=== PATIENT | female | born 1995 | race Caucasian/White ===

== ENCOUNTER → 2019-11-27 | Outpatient (REF) | payer OTHER ==
[2019-11-27 13:09] LABS: HEMOGLOBIN 13.2 g/dl (12.0-15.5); MEAN CORPUSCULAR HEMOGLOBIN 28.6 pg (27.0-33.0); MEAN CORPUSCULAR VOLUME 86.8 fl (80.0-96.0); PLATELET COUNT, AUTOMATED 335 10^3/uL (150-450); RED BLOOD COUNT 4.61 10^6/uL (4.00-5.40); WHITE BLOOD COUNT 6.3 10^3/uL (4.0-10.0)
[2019-11-27 13:19] LABS: ALBUMIN 3.4 GM/DL (3.2-5.2); ALT/SGPT 21 U/L (12-78); BILIRUBIN,TOTAL 0.6 MG/DL (0.2-1.0); BLOOD UREA NITROGEN 12 MG/DL (7-18); CALCIUM LEVEL 8.9 MG/DL (8.5-10.1); CARBON DIOXIDE LEVEL 30 MEQ/L (21-32); CHLORIDE LEVEL 103 MEQ/L (98-107); CREATININE FOR GFR 0.52 MG/DL (0.55-1.30); GLOMERULAR FILTRATION RATE > 60.0 (>60); GLUCOSE, FASTING 85 MG/DL (70-100); POTASSIUM SERUM 4.2 MEQ/L (3.5-5.1); SODIUM LEVEL 137 MEQ/L (136-145); TOTAL PROTEIN 6.5 GM/DL (6.4-8.2)
[2019-11-28 09:13] LABS: CHOLESTEROL LEVEL 167 MG/DL (<200); CHOLESTEROL RISK RATIO 2.879 (<5); HDL CHOLESTEROL 58 MG/DL (>40); LDL CHOLESTEROL 92 MG/DL (<100); NON-HDL-C 109 MG/DL; TRIGLYCERIDES LEVEL 83 MG/DL (<150)
[2019-11-28 09:17] LABS: TOTAL 25(OH) VITAMIN D 32.2 NG/ML (30.0-100.0)
== END ==
LOC: M SFHCPLAZ 09:19
PROVIDERS: ATTEND Nurse Practitioner Family
DX: J30.89 Other allergic rhinitis (principal); F41.9 Anxiety disorder, unspecified

== ENCOUNTER 2020-02-29 16:48 | Emergency (ER) | payer OTHER ==
[~2020-02-29] VITALS: Ht 160 cm; Wt 74.3 kg
[2020-02-29] MEDS ORDERED: NORE0.353 (16:57)
[2020-02-29] MEDS ORDERED: ALBU8.5H (16:57)
[2020-02-29] MEDS ORDERED: CETI-24 (16:57)
[2020-02-29 17:48] LABS: BASO # 0.1 10^3/uL (0.0-0.2); BASO % 0.8 % (0.0-1.0); EOS # 0.5 10^3/uL (0.0-0.5); EOS % 5.9 % (0.0-3.0); HEMATOCRIT 39.3 % (36.0-47.0); HEMOGLOBIN 13.5 g/dl (12.0-15.5); LYMPH # 2.8 10^3/uL (1.5-5.0); MEAN CORPUSCULAR HEMOGLOBIN 29.2 pg (27.0-33.0); MEAN CORPUSCULAR HGB CONC 34.4 g/dl (32.0-36.5); MEAN CORPUSCULAR VOLUME 84.9 fl (80.0-96.0); MONO # 0.3 10^3/uL (0.0-0.8); MONO % 4.1 % (0.0-5.0); NEUTROPHILS # 4.3 10^3/uL (1.5-8.5); NEUTROPHILS % 53.9 % (36.0-66.0); PLATELET COUNT, AUTOMATED 392 10^3/uL (150-450); RED BLOOD COUNT 4.63 10^6/uL (4.00-5.40)
[2020-02-29 17:56] LABS: HCG, SERUM QUALITATIVE NEGATIVE (NEGATIVE)
[2020-02-29 18:01] LABS: BLOOD UREA NITROGEN 14 MG/DL (7-18); CALCIUM LEVEL 9.2 MG/DL (8.5-10.1); CARBON DIOXIDE LEVEL 29 MEQ/L (21-32); CHLORIDE LEVEL 108 MEQ/L (98-107); CK-MB VALUE MASS < 1.0 NG/ML (<3.6); CPK CREATINE PHOSPHOKINASE 59 U/L (26-192); FREE THYROXINE INDEX 3.1 % (1.3-4.8); GLOMERULAR FILTRATION RATE > 60.0 (>60); GLUCOSE, FASTING 100 MG/DL (70-100); MB/CK RELATIVE INDEX 1.69 (< OR =4); SODIUM LEVEL 142 MEQ/L (136-145); T UPTAKE 36 % (30-39); THYROID STIMULATING HORMONE 0.745 uIU/ML (0.358-3.740); THYROXINE (T4) 8.6 UG/DL (4.5-12.0); TROPONIN I < 0.02 NG/ML (< 0.10)
--- NOTE | 2020-02-29 18:53 | REPVR ---
PROCEDURE INFORMATION: Exam: XR Chest, 2 Views Exam date and time: 02/29/2020 5:31 PM Age: 24 years old Clinical indication: Other: Palpitations TECHNIQUE: Imaging protocol: XR of the chest Views: 2 views. COMPARISON: CR Chest, 1 view 09/04/2014 2:16 PM FINDINGS: Lungs: The lungs appear clear. Pleural space: There is no evidence of pneumothorax or pleural effusion. Heart/Mediastinum: The heart is normal in size. Bones/joints: There is no evidence of bony abnormality. IMPRESSION: Clear appearing lungs. Electronically signed by: Angelo Leung On 02/29/2020 18:53:30 PM
[2020-02-29 19:32] VITALS: BP 118/69
--- NOTE | 2020-03-11 12:23 | ECGEPIP ---
[facility] - ED Test Date: 2020-02-29 Pat Name: HALEY SAVAGE Department: Room: - Gender: Female Networks Computer Consultant: joshua : 1995 Requested By: Bess Donovan Order Number: [id number] Reading MD: Bess Donovan Measurements Intervals Gaines Rate: 84 P: 74 KS: 167 QRS: 56 QRSD: 77 T: 52 QT: 325 QTc: 386 Interpretive Statements SINUS RHYTHM NORMAL ECG SEE SCANNED DOWNTIME REPORT
== END 2020-02-29 19:33 | disposition home or self-care (01) ==
LOC: M ED 16:48
DX: R00.2 Palpitations (principal); J45.909 Unspecified asthma, uncomplicated; Z79.3 Long term (current) use of hormonal contraceptives; Z88.1 Allergy status to other antibiotic agents; Z87.59 Personal history of other complications of pregnancy, childbirth and the puerperium; Z90.721 Acquired absence of ovaries, unilateral; Z98.890 Other specified postprocedural states

== ENCOUNTER → 2020-08-05 | Outpatient (REF) | payer OTHER ==
[~2020-08-05] MED LIST: ALBU8.5H; CETI-24; NORE0.353
[2020-08-05 16:36] LABS: HEMATOCRIT 38.8 % (36.0-47.0); HEMOGLOBIN 12.9 g/dl (12.0-15.5); MEAN CORPUSCULAR HEMOGLOBIN 28.8 pg (27.0-33.0); MEAN CORPUSCULAR HGB CONC 33.2 g/dl (32.0-36.5); MEAN CORPUSCULAR VOLUME 86.6 fl (80.0-96.0); PLATELET COUNT, AUTOMATED 377 10^3/uL (150-450); RED BLOOD COUNT 4.48 10^6/uL (4.00-5.40)
[2020-08-05 17:50] LABS: HEPATITIS C VIRUS ABY INDEX 0.2 INDEX (<0.8); HIV 1&2 SCREEN CENTAUR NEGATIVE (NEGATIVE)
== END ==
LOC: M PLALAB 09:51
PROVIDERS: ATTEND Specialist
DX: Z34.81 Encounter for supervision of other normal pregnancy, first trimester (principal)

== ENCOUNTER → 2020-08-21 | Outpatient (REF) | payer OTHER | LOC: M SFHCWAGY 12:51 | PROVIDERS: ATTEND Advanced Practice Midwife | DX: R30.0 Dysuria (principal) ==

== ENCOUNTER → 2020-09-05 | Outpatient (REF) | payer OTHER | LOC: M SFHCWAGY 10:15 | PROVIDERS: ATTEND Advanced Practice Midwife | DX: O34.211 Maternal care for low transverse scar from previous cesarean delivery (principal) ==

== ENCOUNTER → 2020-10-15 | Outpatient (CLI) | payer OTHER ==
--- NOTE | 2020-10-15 15:38 | REP ---
INDICATION: ANATOMY COMPARISON: None. TECHNIQUE: Transabdominal obstetrical ultrasound with color Doppler evaluation. FINDINGS: Examination demonstrates a single live intrauterine in transverse (head to maternal left) presentation. motion is identified by technologist. Placenta is noted posterior/fundal and grade 1 without evidence for placenta previa or abruption. Amniotic fluid volume is normal. Cervix measures 4.3 cm in length and appears closed.. Gestational age by LMP 19 weeks 4 days with RANJAN 03/07/2021. Gestational age by current measurements 20 weeks 1 day with RANJAN 03/03/2021. FHR equals 150 beats per minute. BPD: 4.7 cm at 20 weeks 1 day HC: 17.2 cm at 19 weeks 5 days AC: 15.2 cm at 20 weeks 3 days FL: 3.2 cm at 19 weeks 6 days HL: 3.2 cm at 20 weeks 5 days HC/AC: 1.13 Estimated weight 333 grams (76thpercentile). Anatomical assessment demonstrates normal structures including cranium, choroid plexus, cavum, cerebellum/posterior fossa, facial features, lungs, four-chamber heart/ventricular outflow tracts, diaphragm, stomach, cord insertion/three-vessel cord, kidneys/bladder, spine, and extremities. IMPRESSION: Single live intrauterine demonstrating appropriate interval growth. Anatomical assessment is complete and normal. <Electronically signed by Arvin Kenney > 10/15/20 [id number]
== END ==
LOC: M WHC 13:07
PROVIDERS: ATTEND Advanced Practice Midwife
DX: O34.211 Maternal care for low transverse scar from previous cesarean delivery (principal); Z3A.20 20 weeks gestation of pregnancy

== ENCOUNTER → 2020-11-29 | Outpatient (REF) | payer OTHER ==
[2020-11-29 17:15] LABS: HEMATOCRIT 35.1 % (36.0-47.0); HEMOGLOBIN 11.4 g/dl (12.0-15.5); MEAN CORPUSCULAR HEMOGLOBIN 28.4 pg (27.0-33.0); MEAN CORPUSCULAR HGB CONC 32.5 g/dl (32.0-36.5); MEAN CORPUSCULAR VOLUME 87.5 fl (80.0-96.0); PLATELET COUNT, AUTOMATED 353 10^3/uL (150-450); RED BLOOD COUNT 4.01 10^6/uL (4.00-5.40); WHITE BLOOD COUNT 8.1 10^3/uL (4.0-10.0)
== END ==
LOC: M PLALAB 14:00
PROVIDERS: ATTEND Advanced Practice Midwife
DX: O34.211 Maternal care for low transverse scar from previous cesarean delivery (principal)

== ENCOUNTER → 2020-12-10 | Outpatient (CLI) | payer OTHER | LOC: M LAB 08:36 | PROVIDERS: ATTEND Advanced Practice Midwife | DX: O99.810 Abnormal glucose complicating pregnancy (principal) ==

== ENCOUNTER → 2021-02-07 | Outpatient (REF) | payer OTHER | LOC: M SFHCWAGY 13:07 | PROVIDERS: ATTEND Advanced Practice Midwife | DX: O34.211 Maternal care for low transverse scar from previous cesarean delivery (principal) ==

== ENCOUNTER → 2021-02-27 | Outpatient (CLI) | payer OTHER ==
--- NOTE | 2021-02-27 10:54 | REP ---
INDICATION: GROWTH COMPARISON: 10/15/2020 TECHNIQUE: Transabdominal obstetrical ultrasound with color Doppler evaluation. FINDINGS: Examination demonstrates a single live intrauterine in cephalic presentation. motion is identified by technologist. Placenta is noted posterior and grade 2 without evidence for placenta previa or abruption. Amniotic fluid volume is normal. Cervix measures 3.7 cm in length and appears closed.. Selected gestational age: Thirty-eight weeks 6 days with RANJAN 03/07/2021. Gestational age by current measurements 39 weeks 0 days with RANJAN 03/06/2021. FHR equals 133 beats per minute. BPD: 9.2 cm at 37 weeks 2 days HC: 33.7 cm at 38 weeks 4 days AC: 36.4 cm at 40 weeks 2 days FL: 7.8 cm at 40 weeks 0 days HC/AC: 0.93 Estimated weight 3382 grams (84thpercentile). KARLIE: 11.5 cm IMPRESSION: Single live advanced gestation in cephalic presentation demonstrating appropriate interval growth. <Electronically signed by Arvin Kenney > 02/27/21 [id number]
== END ==
LOC: M WHC 09:51
PROVIDERS: ATTEND Advanced Practice Midwife
DX: Z36.89 Encounter for other specified antenatal screening (principal); O09.293 Supervision of pregnancy with other poor reproductive or obstetric history, third trimester; Z3A.39 39 weeks gestation of pregnancy

== ENCOUNTER 2021-03-17 07:50 | Inpatient (IN) | payer OTHER ==
[~2021-03-17] VITALS: Ht 160 cm; Wt 92.8 kg
[2021-03-17] VITALS (35 sets, daily range): BP systolic 110–179; BP diastolic 58–115
[2021-03-17] MEDS ORDERED: CARBOPROST TROMETHAMINE 250 MCG/ML AMP IM PRN (09:35)
[2021-03-17] MEDS ORDERED: OXYTOCIN DRIP 30 UNITS in IV 1 EA IV PRN (09:35)
[2021-03-17] MEDS ORDERED: OXYTOCIN DRIP 30 UNITS in IV 1 EA IV SCH (09:35)
[2021-03-17] MEDS ORDERED: METHYLERGONOVINE MALEATE 0.2 MG/ML VIAL (J2210) IM PRN (09:35)
[2021-03-17] MEDS ORDERED: LIDOCAINE 1% MDV 20ML VIAL INFIL PRN (09:35)
[2021-03-17] MEDS ORDERED: TRANEXAMIC ACID INJection 1,000 MG in NS 100 ML IV PRN (09:35)
--- NOTE | 2021-03-17 09:48 | HPEPDOC ---
Obstetrical History & Physical General Date of Admission Mar 17, 2021 at 07:50 Primary Care Physician: SHOBHA BARRAGAN CNM History of Present Illness Doreen is a 26-year-old female who is a who is 41.3 weeks gestation with an RANJAN of 03/07/21 based off of her LMP and consistent with her first trimester ultrasound. She initiated care in her first trimester with [facility]. She has a history of a LTCS, history of GHTN, and a history of migraines. She has been counseled extensively about method of delivery and desires a TOLAC. She presents to L&D for an induction of labor due to post dates. She reports starting contractions this morning. Reports active movement. Denies leaking of fluid or vaginal bleeding. Chief Complaint: Induction of labor Information Provided By: Patient Age: 26 : 2 Term: 1 Pre-term: 0 Abortions: 0 Livin Care Care: Good Care Dating Final EDC: Mar 07, 2021 Final EDC by: LMP EGA at Admission: 41.3 Antepartum Course Diagnos(e)s History of LTCS Height (inches): 63 Pre- weight (lbs.): 169 Admission Weight (lbs.): 202 Change in Weight (lbs.): 33 Past Medical History Past Obstetrical History : Past Obstetrical History: Primgravida Date of Delivery: Aug 21, 2018 Gestation: 40.4 Type of Delivery: Ceserean section Sex of Infant: Male (9 lbs 2 oz) Complications: Yes (GHTN and chorioamnionitis) Past Medical History Medical History exercise induced asthma migraine with aura history of dermoid cyst Surgical History: section, [place] teeth, Other (left oophorectomy due to dermoid cyst) Family History Significant Family History: Heart disease, Hypertension, Other (MS, anxiety, depression, MT, CVA, liver disease) Social History Marital Status: Family situation: Spouse/partner home Psychosocial History: No pertinent psych hx * Smoker: non-smoker Alcohol: Denies Drugs: denies Abuse Violence Screening Have you been hit/kicked/slapp: No Have you been sexually assault: No Allergies Coded Allergies: [place] Nut (Verified Allergy, Severe, anaphylaxis, 03/17/21) cefprozil (Verified Allergy, Mild, rash, 02/29/20) Medications Scheduled Aspirin (Aspirin) 81 Mg Tab.chew, 1 TAB PO DAILY for pain No.137/Iron/Folic Acd ( Vitamin Tablet) 1 Each Tablet, 1 TAB PO DAILY Miscellaneous Medications Albuterol Sulfate (Albuterol Sulfate Hfa) 8.5 Gm Hfa.aer.ad Cetirizine HCl (Cetirizine HCl) 10 Mg Tablet Vitamin D (Vitamin D3) 10 Mcg Tablet, 2,000 MCG PO Physical Examination Physical Examination GENERAL: Alert and oriented times three. ABDOMEN: Gravid and non-tender to touch. FETUS: Is vertex (VTX) by sterile vaginal examination (SVE), fetus is vertex (VTX) by Arnoldo. EFW 9 lbs. LUNGS: regular rate and rhythm. No use of accessory muscles. EXTREMITIES: Generalized edema. No clonus. Deep tendon reflexes (DTRs) + 2. Vital Signs/I&O Vital Signs Date Time Temp Pulse Resp B/P (MAP) Pulse Ox O2 Delivery O2 Flow Rate FiO2 03/17/21 08:14 97.7 105 19 139/75 (96) Laboratory Data 24H LABS Laboratory Tests 2 03/17/21 08:09: Serology Scanned Report Hepatitis B Testing Urine Culture: No Growth Pertinent Laboratoy Data Blood Type: O+ RBC Antibody Screen: Negative HIV: Negative Hepatitis B: Negative Hepatitis C: Negative Rapid Plasma Reagin: Nonreactive Rubella: Immune Chlamydia/Gonorrhea: Negative Group B Streptococcus: Negative Glucose Tolerance Test: 146 Anatomy Ultrasound Ultrasound Date: Feb 27, 2021 Placenta Location: Posterior Normal Anatomy: Yes Placenta Previa: No Estimated Weight (grams): 3382 Vaginal Examination Dilation: 2cm Effacement: 50% Station: -2 Cervical Consistency: Soft Cervical Position: Middle Presentation: Cephalic presentation Assessment Heart Rate (FHR): 135 Variability: Moderate Accelerations: Positive Decelerations: None Tocometer Contractions: Yes Frequency: irregular Multi-drug resistant Organism: No history of MDRO Assessment/Plan Assessment IUP at 41.3 weeks Prior LTCS desires TOLAC GBS negative Category I FHR tracing Plan Admit to L&D. Dr. Deras collaborated for plan of care. Risks, benefits, and alternatives have been discussed with patient and she desires to proceed with induction of labor. OOB ad vannesa. Diet: clears. Group B Streptococcus (GBS) negative. Labs and intravenous (IV) per unit protocol. Counseled on stern bulb and IV Pitocin for induction of labor. Anesthesia consult per patients request. Lactated Ringers (LR): Bolus 800 mL prior to epidural, then at 125 mL/hr. Stern bulb placed with 80/40 cc of LR. Patient tolerated well. Anticipate cervical ripening. C-S as appropriate. SHOBHA BARRAGAN CNM Mar 17, 2021 09:48
[2021-03-17] MEDS ORDERED: ASPI81CH33 PO (09:58)
[2021-03-17] MEDS ORDERED: VITAD400CA PO (09:58)
[2021-03-17] MEDS ORDERED: PRENTAB9 PO (09:58)
[2021-03-17 10:12] LABS: HEMATOCRIT 39.8 % (36.0-47.0); HEMOGLOBIN 13.2 g/dl (12.0-15.5); MEAN CORPUSCULAR HEMOGLOBIN 28.1 pg (27.0-33.0); MEAN CORPUSCULAR HGB CONC 33.2 g/dl (32.0-36.5); MEAN CORPUSCULAR VOLUME 84.7 fl (80.0-96.0); PLATELET COUNT, AUTOMATED 357 10^3/uL (150-450); WHITE BLOOD COUNT 10.2 10^3/uL (4.0-10.0)
[2021-03-17] MEDS: LR 1,000 ML IV SCH ×2 (10:26→17:33)
--- NOTE | 2021-03-17 12:16 | IPNPDOC ---
Obstetrical Progress Note Date of Service Mar 17, 2021 Subjective Patient reports her contractions are closer together. Reports she has to urinate but can't urinate. Objective Vital Signs Date Time Temp Pulse Resp B/P (MAP) Pulse Ox O2 Delivery O2 Flow Rate FiO2 03/17/21 11:36 111 145/80 (101) 03/17/21 08:14 97.7 19 Assessment Heart Rate (FHR): 140 Variability: Moderate Accelerations: Positive Decelerations: None Heart Rate Tracing: Category I Tocometer Contractions: Yes Frequency: regular Sterile Vaginal Examination Dilation: 6 cm Effacement (%): other (75%) Station: -2 Cervical Consistency: Soft Cervical Position: Posterior Postion/Presentation: Cephalic presentation Assessment and Plan Age: 26 : 2 Term: 1 Pre-term: 0 Abortions: 0 Livin EGA at Admission: 41.3 Status: Reassuring Group B Streptococcus: Negative Anticipate: Vaginal Delivery Additional Comments Shields bulb out of cervix and IV Pitocin is at 4 mu/min. SHOBHA BARRAGAN CNM Mar 17, 2021 12:16
--- NOTE | 2021-03-17 16:48 | IPNPDOC ---
Obstetrical Progress Note Date of Service Mar 17, 2021 Subjective Patient reports her contractions are stronger. Desires a cervical exam. Objective Vital Signs Date Time Temp Pulse Resp B/P (MAP) Pulse Ox O2 Delivery O2 Flow Rate FiO2 03/17/21 14:06 98.1 88 18 132/77 (95) Assessment Heart Rate (FHR): 130 Variability: Moderate Accelerations: Positive Decelerations: None Heart Rate Tracing: Category I Tocometer Contractions: Yes Frequency: regular Sterile Vaginal Examination Dilation: 7 cm (7-8 cm) Effacement (%): other (75%) Station: -2 Cervical Consistency: Soft Cervical Position: Posterior Postion/Presentation: Cephalic presentation Assessment and Plan Age: 26 : 2 Term: 1 Pre-term: 0 Abortions: 0 Livin Weeks & Days 41.3 weeks Status: Reassuring Group B Streptococcus: Negative Anticipate: Vaginal Delivery Additional Comments IV Pitocin at 8 mu/min. Dr. Deras to be notified of patient being in active labor. SHOBHA BARRAGAN CNM Mar 17, 2021 16:47
[2021-03-17 16:49] LABS: ALT/SGPT 16 U/L (12-78); BILIRUBIN,TOTAL 0.2 MG/DL (0.2-1.0); CREATININE FOR GFR 0.58 MG/DL (0.55-1.30); GLOMERULAR FILTRATION RATE > 60.0 (>60); LDH LACTATE DEHYDROGENASE 171 U/L (84-246); URIC ACID 5.4 MG/DL (2.6-6.0)
[2021-03-17] MEDS ORDERED: REFRIGERATOR IV KEYS XX PRN (20:20)
[2021-03-17] MEDS ORDERED: ePHEDrine SULFATE 25 MG/5 ML(5MG/ML) SYRINGE IV PRN (20:20)
[2021-03-17] MEDS ORDERED: EPIDURAL/PCA KEYS XX PRN (20:20)
[2021-03-17] MEDS ORDERED: FENTANYL/ROPIVACAINE/NACL BAG 100 ML EPIDURAL SCH (20:20)
[2021-03-17] MEDS ORDERED: NALOXONE INJ 0.4MG/1ML VIAL (J2310 PER 1MG) IV PRN (20:20)
[2021-03-17] MEDS ORDERED: diphenhydrAMINE 50MG/ML VIAL (J1200) IV PRN (20:20)
[2021-03-17] MEDS ORDERED: EPIDURAL COMMENT XX SCH (20:20)
[2021-03-17] MEDS ORDERED: ONDANSETRON 4MG/2ML VIAL IV PRN (20:20)
[2021-03-17] MEDS ORDERED: LACTATED RINGER'S 1000 ML IV PRN (20:20)
[2021-03-18] VITALS (20 sets, daily range): BP systolic 101–180; BP diastolic 57–80
[2021-03-18] MEDS ORDERED: CALCIUM CARBONATE 500 MG CHEW U/D PO PRN (01:10)
--- NOTE | 2021-03-18 01:15 | IPNPDOC ---
Obstetrical Progress Note Date of Service Mar 18, 2021 Subjective Patient still comfortable with epidural. Does report some pressure with peak of contraction. Objective Vital Signs Date Time Temp Pulse Resp B/P (MAP) Pulse Ox O2 Delivery O2 Flow Rate FiO2 03/17/21 22:18 104 136/63 (87) 03/17/21 19:44 97.3 03/17/21 18:14 20 Assessment Heart Rate (FHR): 140 Variability: Moderate Decelerations: Late Heart Rate Tracing: Category II Tocometer Contractions: Yes Frequency: regular Sterile Vaginal Examination Dilation: 9 cm (anterior lip) Effacement (%): 100% Station: 0 (O to +1 station) Postion/Presentation: Cephalic presentation Assessment and Plan Age: 26 : 2 Term: 1 Pre-term: 0 Abortions: 0 Livin EGA at Admission: 41.3 Weeks & Days 41.4 weeks Group B Streptococcus: Negative Anticipate: Vaginal Delivery Additional Comments Lates resolved with position change. Dr. Deras aware that patient will be pushing soon and he is available in the hospital. SHOBHA BARRAGAN CNM Mar 18, 2021 01:15
[2021-03-18] MEDS ORDERED: LACTATED RINGER'S 1000 ML IV STA (03:09)
[2021-03-18] MEDS ORDERED: ceFAZolin SOD 2 GM in IV 1 EA IV ONE (03:10)
[2021-03-18] MEDS ORDERED: AZITHROMYCIN INJ 500 MG, VIAL MATE ADAPTER 1 EACH in NS 250 ML IV ONE (03:10)
[2021-03-18] MEDS ORDERED: BICITRA 30ML SOLN UDC PO ONE (03:10)
--- NOTE | 2021-03-18 03:21 | IPNPDOC ---
Obstetrical Progress Note Date of Service Mar 18, 2021 Subjective Patient does report pressure with contractions. She states she is getting tired and if there is no change she is requesting an repeat section. Objective Vital Signs Date Time Temp Pulse Resp B/P (MAP) Pulse Ox O2 Delivery O2 Flow Rate FiO2 03/17/21 22:18 104 136/63 (87) 03/17/21 19:44 97.3 03/17/21 18:14 20 Assessment Heart Rate (FHR): 165 Variability: Moderate Decelerations: Early Heart Patterns: Tachycardia Heart Rate Tracing: Category II Tocometer Contractions: Yes Frequency: regular Sterile Vaginal Examination Dilation: complete Effacement (%): 100% Station: 0 (0 to +1) Postion/Presentation: Cephalic presentation Assessment and Plan Status: Reassuring Anticipate: Section Additional Comments Anesthesia notified. Dr. Deras notified. Neonatology notified. Utilization Supervisor notified. Will proceed with section as patient has not made any change in over an hour of pushing. Arrest of descent. SHOBHA BARRAGAN CNM Mar 18, 2021 03:21
[2021-03-18] MEDS ORDERED: MORPHINE PRES-FREE INJ 10 MG/10 ML VIAL (J2274) ONE (03:49)
[2021-03-18] MEDS ORDERED: LIDOCAINE 2% W/EPINEPHRINE 20ML VIAL **PRES FREE ONE (03:49)
[2021-03-18] MEDS ORDERED: OXYTOCIN INJ 10 UNITS/ML VIAL (J2590) ONE ×3 (03:49→04:37)
[2021-03-18] MEDS ORDERED: ONDANSETRON 4MG/2ML VIAL IV PRN ×3 (04:10→05:40)
[2021-03-18] MEDS ORDERED: NALBUPHINE HCL 10 MG/ML AMP (J2300) IV PRN (04:10)
[2021-03-18] MEDS ORDERED: NALOXONE INJ 0.4MG/1ML VIAL (J2310 PER 1MG) IV PRN ×2 (04:10)
[2021-03-18] MEDS ORDERED: diphenhydrAMINE 50MG/ML VIAL (J1200) IV PRN (04:10)
[2021-03-18] MEDS ORDERED: METOCLOPRAMIDE INJ 10MG/2ML VIAL (J2765 PER 1) IV PRN ×2 (04:10→05:40)
[2021-03-18] MEDS ORDERED: MEPERIDINE 50 MG/ML 1ML VIAL (J2175) ONE (04:28)
[2021-03-18] MEDS ORDERED: PERCOCET 5MG/325MG TAB PO PRN ×2 (04:55→05:40)
[2021-03-18] MEDS ORDERED: MEASLES,MUMPS,RUBELLA VACCINE INJ (MMR-II) (90707) SC SCH (04:55)
[2021-03-18] MEDS ORDERED: ACETAMINOPHEN 500 MG TAB PO PRN (04:55)
[2021-03-18] MEDS ORDERED: OXYTOCIN DRIP 30 UNITS in IV 1 EA IV SCH (04:55)
[2021-03-18] MEDS ORDERED: SIMETHICONE 80MG CHEW TAB PO PRN (04:55)
[2021-03-18] MEDS ORDERED: RHOGAM 300 MCG (1500 IU) INJ (J2790) IM SCH (04:55)
--- NOTE | 2021-03-18 05:02 | ROOPDOC ---
[facility] Report Of Operation Report of Operation DATE OF PROCEDURE: 03/18/2021 PREPROCEDURE DIAGNOSES: 41+4 weeks gestation, arrest of descent/unsuccessful trial of labor after POSTPROCEDURE DIAGNOSES: Same PROCEDURE: Repeat low transverse section SURGEON: Long Deras DO FACOG LASTING MACHINE OPERATOR BED: Noris Solis CNM (Essential role in retraction, extraction, and closure of all tissue layers), Mindi Carvalho (student CNM) ANESTHESIA: Epidural ESTIMATED BLOOD LOSS: 700 mL. IV FLUIDS: 1600 mL LR URINE OUTPUT: 100 mL COMPLICATIONS: None. PREOPERATIVE ANTIBIOTICS: Ancef 2g IV x 1, Azithromycin 500mg IV. COMPLICATIONS: none DATA: Apgars 9 and 9. Birthweight 4240 g, 9 lbs 6 oz. SPECIMENS: none PRIMARY INDICATION FOR : Arrest of descent/unsuccessful trial of labor after DESCRIPTION OF PROCEDURE: The patient was counseled on the risks, benefits, indications and alternatives of the procedure. Informed consent was obtained. She was taken to the operating room with IV running and placed on the operating table in the dorsal supine position with a leftward tilt. Regional anesthesia was found to be adequate. Sequential compression devices were placed on the lower extremities. A Shields catheter was placed under sterile conditions. She was prepared and draped in normal sterile fashion. A time out was performed per protocol. Regional anesthesia was again found to be adequate. A Pfannenstiel skin incision was made with the 10 blade. The 10 blade was used to dissect down to the level of the rectus sheath fascia. The rectus sheath pressure was incised midline and this was extended bilaterally with Mcdonough scissors , and manual stretch. The rectus muscle bellies were dissected off the rectus sheath fascia superiorly and inferiorly using both sharp and blunt dissection. The midline was identified. The peritoneum was identified and ent ered digitally. The peritoneal opening was extended with manual stretch. The Mobius retractor was placed. The vesicouterine peritoneum was dissected with Metzenbaum scissors to create the bladder flap. A low transverse uterine incision was made with the 10 blade. This was extended with manual stretch. The amniotic sac was punctured, and clear fluid was noted. The baby delivered through the hysterotomy without difficulty. The cord was doubly clamped and cut, and the baby was handed off to awaiting care. data shown above. The placenta was removed manually. The intrauterine cavity was cleared of all clot and debris. The hysterotomy was closed with 0 Vicryl in running locked fashion. This was reinforced with a second imbricating layer usi ng 0 Monocryl in running fashion. Small bleeding areas along the hysterotomy were sutured over with 3-0 Vicryl by performing [id number] stitches. Excellent hemostasis of the hysterotomy was noted. The pelvis was irrigated and the fluid suctioned. The Mobius retractor was removed. The peritoneum was closed with 3-0 Vicryl running fashion. The rectus muscle bellies were reapproximated with interrupted stitches using 3-0 Vicryl. The rectus muscles bellies were hemostatic. The rectus sheath fascia was closed with 0 Vicryl running fashion. The subcutaneous layer was irrigated and the fluid suctioned. Small bleeding vessels were cauterized with Bovie. Excellent hemostasis was noted. The subcutaneous layer was reapproximated with 3-0 Vicryl running fashion. Skin was closed with 3-0 Monocryl in subcuticular fashion. An Optifoam bandage was placed over the closed incision. Sponge, needle and instrument counts were correct per protocol throughout the procedure. The patient tolerated the entire procedure very well. She was transferred to the PACU in stable condition. DO CEASAR Colmenares JONATHAN R. DO Mar 18, 2021 05:02
[2021-03-18] MEDS ORDERED: PERCOCET PO (05:04)
[2021-03-18] MEDS ORDERED: IBUP80TA PO (05:04)
[2021-03-18] MEDS ORDERED: DOCU100C16 PO (05:04)
[2021-03-18] MEDS ORDERED: fentaNYL 100 MCG/2 ML INJECTION (J3010) IV PRN (05:40)
[2021-03-18] MEDS ORDERED: LR 1,000 ML IV SCH (05:40)
[2021-03-18] MEDS ORDERED: MEPERIDINE INJ 25 MG/ML VIAL (J2175) IV PRN (05:40)
[2021-03-18] MEDS ORDERED: KETOROLAC 30 MG/ML 1ML VIAL IV PRN (05:40)
[2021-03-18] MEDS: KETOROLAC 30 MG/ML 1ML VIAL IV SCH ×3 (06:42→18:30)
[2021-03-18] MEDS: DOCUSATE SODIUM 100MG CAPSULE PO SCH ×2 (07:52→20:08)
[2021-03-18] MEDS: PRENATAL VITAMINS CHEWABLE TABLET PO SCH (07:52)
[2021-03-18] MEDS ORDERED: diphenhydrAMINE 25MG CAP PO PRN (21:00)
[2021-03-19 02:00] VITALS: BP_SYST 118; BP_SYST 143; BP_DIAS 58; BP_DIAS 91
[2021-03-19] MEDS ORDERED: IBUPROFEN 800 MG TAB As Ordered ONE (02:07)
[2021-03-19] MEDS: IBUPROFEN 800 MG TAB PO SCH ×3 (02:30→18:29)
[2021-03-19 06:00] VITALS: BP 108/59
[2021-03-19 07:24] LABS: HEMATOCRIT 29.4 % (36.0-47.0); MEAN CORPUSCULAR HEMOGLOBIN 28.7 pg (27.0-33.0); MEAN CORPUSCULAR HGB CONC 33.3 g/dl (32.0-36.5); PLATELET COUNT, AUTOMATED 247 10^3/uL (150-450); RED BLOOD COUNT 3.42 10^6/uL (4.00-5.40); WHITE BLOOD COUNT 11.6 10^3/uL (4.0-10.0)
[2021-03-19 07:35] LABS: HEMOGLOBIN 9.8 g/dl (12.0-15.5)
[2021-03-19] MEDS: PRENATAL VITAMINS CHEWABLE TABLET PO SCH (08:02)
[2021-03-19] MEDS: DOCUSATE SODIUM 100MG CAPSULE PO SCH ×2 (08:03→20:14)
[2021-03-19] MEDS: PERCOCET 5MG/325MG TAB PO PRN ×3 (08:08→21:06)
[2021-03-19 10:00] VITALS: BP 121/58
[2021-03-19 14:00] VITALS: BP 116/63
[2021-03-19 17:51] VITALS: BP 113/66
[2021-03-19 22:01] VITALS: BP 116/54
[2021-03-20] MEDS: IBUPROFEN 800 MG TAB PO SCH ×2 (01:32→10:25)
[2021-03-20 02:14] VITALS: BP 126/58
[2021-03-20 06:14] VITALS: BP 119/72
[2021-03-20] MEDS: PERCOCET 5MG/325MG TAB PO PRN (06:39)
[2021-03-20] MEDS: DOCUSATE SODIUM 100MG CAPSULE PO SCH (09:09)
[2021-03-20] MEDS: PRENATAL VITAMINS CHEWABLE TABLET PO SCH (09:09)
--- NOTE | 2021-03-20 12:14 | DS.PDOC ---
Discharge Summary General Date of Admission Mar 17, 2021 at 07:50 Date of Discharge 03/20/21 Attending Physician: ANITA SIMPSON DO Discharge Summary PROCEDURES PERFORMED DURING STAY: 1. Repeat lower transverse section 2. Epidural. ADMITTING DIAGNOSES: 1. Induction of labor. DISCHARGE DIAGNOSES: 1. arrest of descent/unsuccessful trial of labor after . COMPLICATIONS/CHIEF COMPLAINT: Induction.. HISTORY OF PRESENT ILLNESS: Mrs. De La Cruz presented induction of labor. Patient pushed and had arrest of descent/unsuccessful trial labor after section. She underwent a repeat section, productive of live born a Apgars were 9 and 9 weight was 4240 g or 9 lbs. 6 oz. Estimated blood loss 700ml. Patient did well postoperatively by postoperative day #2 had met all discharge criteria is as discharged home in stable condition DISCHARGE MEDICATIONS: Please see below. ALLERGIES: Please see below. PHYSICAL EXAMINATION ON DISCHARGE: VITAL SIGNS: Please see below. GENERAL: No distress HEENT: WNL ABDOMINAL EXAMINATION: Fundus firm. Dressing intact EXTREMITIES: Equal strength and motion SKIN: Intact NEUROLOGICAL EXAMINATION: Grossly intact PSYCHIATRIC EXAMINATION: Appropriate LABORATORY DATA: Please see below. PROGNOSIS: Good ACTIVITY: As tolerated. Pelvic rest. DIET: As tolerated DISCHARGE PLAN: Discharge today. Remove dressing day 5 DISPOSITION: Home DISCHARGE INSTRUCTIONS: 1. Pelvic rest. Continue vitamins. Medications as ordered. Call with fever, nausea, vomiting, chills, foul lochia, wound exudate or evidence infection. DISCHARGE CONDITION: Stable Vital Signs/I&Os Vital Signs Date Time Temp Pulse Resp B/P (MAP) Pulse Ox O2 Delivery O2 Flow Rate FiO2 03/20/21 08:37 18 03/20/21 06:39 Room Air 03/20/21 06:14 97.5 94 119/72 (88) 98 Discharge Medications Scheduled Aspirin (Aspirin) 81 Mg Tab.chew, 1 TAB PO DAILY for pain, (Reported) Docusate Sodium (Docusate Sodium) 100 Mg Capsule, 100 MG PO BID Ibuprofen (Ibuprofen) 800 Mg Tablet, 800 MG PO Q8H No.137/Iron/Folic Acd ( Vitamin Tablet) 1 Each Tablet, 1 TAB PO DAILY, (Reported) Scheduled PRN Oxycodone/Acetaminophen (Oxycodone-Acetaminophen 5-325) 1 Each Tablet, 1 TAB PO Q4H PRN for MODERATE PAIN (PS 5-7) Miscellaneous Medications Albuterol Sulfate (Albuterol Sulfate Hfa) 8.5 Gm Hfa.aer.ad, (Reported) Cetirizine HCl (Cetirizine HCl) 10 Mg Tablet, (Reported) Vitamin D (Vitamin D3) 10 Mcg Tablet, 2,000 MCG PO, (Reported) Allergies Coded Allergies: [place] Nut (Verified Allergy, Severe, anaphylaxis, 03/17/21) cefprozil (Verified Allergy, Mild, rash, 02/29/20) MARTHA COOPER MD. Mar 20, 2021 12:14
== END 2021-03-20 12:45 | disposition home or self-care (01) | DRG 540 ==
LOC: M LDI 07:50 → M OBS 03-18 06:27
PROVIDERS: ADMIT Advanced Practice Midwife; ATTEND Obstetrics & Gynecology
PROC: 3E0P7GC Introduction of Other Therapeutic Substance into Female Reproductive, Via Natural or Artificial Opening (ICD-10-PCS; 2021-03-17)
PROC: 10D00Z1 Extraction of Products of Conception, Low, Open Approach (ICD-10-PCS; principal; 2021-03-18 03:45)
DX: O48.0 Post-term pregnancy (principal); Z3A.41 41 weeks gestation of pregnancy; O34.211 Maternal care for low transverse scar from previous cesarean delivery; O66.41 Failed attempted vaginal birth after previous cesarean delivery; O64.0XX0 Obstructed labor due to incomplete rotation of fetal head, not applicable or unspecified; Z37.0 Single live birth

== ENCOUNTER → 2021-09-04 | Outpatient (REF) | payer OTHER ==
[~2021-09-04] MED LIST changes: +ASPI81CH33 PO; +DOCU100C16 PO; +IBUP80TA PO; +PERCOCET PO; +PRENTAB9 PO; +VITAD400CA PO
== END ==
LOC: M SFHCWAGY 13:12
PROVIDERS: ATTEND Obstetrics & Gynecology
DX: Z12.4 Encounter for screening for malignant neoplasm of cervix (principal); R87.610 Atypical squamous cells of undetermined significance on cytologic smear of cervix (ASC-US)

== ENCOUNTER → 2021-10-16 | Outpatient (CLI) | payer OTHER | LOC: M WHC 11:37 | PROVIDERS: ATTEND Surgery | DX: D23.62 Other benign neoplasm of skin of left upper limb, including shoulder (principal) ==

== ENCOUNTER → 2021-12-11 | Outpatient (CLI) | payer OTHER ==
[2021-12-11 17:06] LABS: BASO # 0.1 10^3/uL (0.0-0.2); BASO % 0.7 % (0.0-1.0); EOS # 0.2 10^3/uL (0.0-0.5); EOS % 3.1 % (0.0-3.0); HEMATOCRIT 41.9 % (36.0-47.0); HEMOGLOBIN 13.8 g/dl (12.0-15.5); LYMPH # 2.5 10^3/uL (1.5-5.0); LYMPH % 33.3 % (24.0-44.0); MEAN CORPUSCULAR HEMOGLOBIN 28.9 pg (27.0-33.0); MEAN CORPUSCULAR HGB CONC 32.9 g/dl (32.0-36.5); MEAN CORPUSCULAR VOLUME 87.7 fl (80.0-96.0); MONO # 0.4 10^3/uL (0.0-0.8); MONO % 5.9 % (2.0-8.0); NEUTROPHILS # 4.2 10^3/uL (1.5-8.5); NEUTROPHILS % 56.7 % (36.0-66.0); PLATELET COUNT, AUTOMATED 366 10^3/uL (150-450); RED BLOOD COUNT 4.78 10^6/uL (4.00-5.40); WHITE BLOOD COUNT 7.4 10^3/uL (4.0-10.0)
[2021-12-11 17:40] LABS: ALBUMIN 3.5 GM/DL (3.2-5.2); ALT/SGPT 18 U/L (12-78); BILIRUBIN,TOTAL 0.2 MG/DL (0.2-1.0); BLOOD UREA NITROGEN 14 MG/DL (7-18); CARBON DIOXIDE LEVEL 30 MEQ/L (21-32); CHLORIDE LEVEL 105 MEQ/L (98-107); GLOMERULAR FILTRATION RATE > 60.0 (>60); GLUCOSE, FASTING 74 MG/DL (70-100); POTASSIUM SERUM 4.4 MEQ/L (3.5-5.1); SODIUM LEVEL 141 MEQ/L (136-145); THYROID STIMULATING HORMONE 0.537 uIU/ML (0.358-3.740); TOTAL PROTEIN 6.9 GM/DL (6.4-8.2)
== END ==
LOC: M PLALAB 15:34
PROVIDERS: ATTEND Physician Assistant
DX: R06.02 Shortness of breath (principal)

== ENCOUNTER → 2022-01-01 | Outpatient (CLI) | payer OTHER ==
[~2022-01-01] MED LIST changes: +ISOVUE-370 76% 100ML VIAL As Ordered ONE
== END ==
LOC: M RAD 09:25
PROVIDERS: ATTEND Physician Assistant
DX: R06.02 Shortness of breath (principal)
CPT/HCPCS: 71275; Q9967

== ENCOUNTER → 2023-01-04 | Outpatient (REF) | payer OTHER ==
[~2023-01-04] MED LIST changes: -ISOVUE-370 76% 100ML VIAL As Ordered ONE
== END ==
LOC: M SFHCWAGY 10:27
PROVIDERS: ATTEND Obstetrics & Gynecology
DX: Z12.4 Encounter for screening for malignant neoplasm of cervix (principal)
CPT/HCPCS: 87624; G0123

== ENCOUNTER → 2023-07-16 | Outpatient (CLI) | payer OTHER ==
[2023-07-16 14:02] LABS: ALBUMIN 3.5 G/DL (3.2-5.2); ALKALINE PHOSPHATASE 104 U/L (46-116); ALT/SGPT 18 U/L (7.0-40); AST/SGOT 8 U/L (<34); BILIRUBIN,TOTAL 0.3 MG/DL (0.3-1.2); BLOOD UREA NITROGEN 12 MG/DL (9-23); CALCIUM LEVEL 9.1 MG/DL (8.5-10.1); CARBON DIOXIDE LEVEL 31 MMOL/L (20-31); CHLORIDE LEVEL 104 MMOL/L (98-107); GLOMERULAR FILTRATION RATE > 60.0 (>60); GLUCOSE, FASTING 77 MG/DL (60-100); POTASSIUM SERUM 4.6 MMOL/L (3.5-5.1); SODIUM LEVEL 139 MMOL/L (136-145); TOTAL PROTEIN 6.6 G/DL (5.7-8.2)
[2023-07-16 14:15] LABS: HEMOGLOBIN A1c 5.2 % (4.0-6.0)
== END ==
LOC: M PLALAB 11:29
PROVIDERS: ATTEND Obstetrics & Gynecology
DX: R53.83 Other fatigue (principal); Z12.4 Encounter for screening for malignant neoplasm of cervix

== ENCOUNTER → 2023-08-24 | Outpatient (CLI) | payer OTHER | LOC: M WHC 08:53 | PROVIDERS: ATTEND Obstetrics & Gynecology | DX: R10.2 Pelvic and perineal pain (principal); N83.201 Unspecified ovarian cyst, right side ==

== ENCOUNTER → 2025-01-16 | Outpatient (REF) | payer OTHER | LOC: M SFHCWAGY 13:15 | PROVIDERS: ATTEND Obstetrics & Gynecology | DX: Z12.4 Encounter for screening for malignant neoplasm of cervix (principal) ==

== ENCOUNTER 2025-05-29 02:37 | Emergency (ER) | payer OTHER ==
[~2025-05-29] VITALS: Ht 160 cm; Wt 77.0 kg
[2025-05-29 02:39] VITALS: BP 128/79; TEMP 97.9; O2SAT 99
[2025-05-29 03:15] LABS: APPEARANCE, URINE CLEAR (CLEAR); BACTERIA, URINE AUTO NEGATIVE (NEGATIVE); BILIRUBIN, URINE AUTO NEGATIVE (NEGATIVE); BLOOD, URINE BLOOD 2+ (NEGATIVE); GLUCOSE, URINE (UA) AUTO NEGATIVE (NEGATIVE); KETONE, URINE AUTO NEGATIVE (NEGATIVE); LEUKOCYTE ESTERASE, URINE AUTO NEGATIVE (NEGATIVE); NITRITE, URINE AUTO NEGATIVE (NEGATIVE); PROTEIN, URINE AUTO NEGATIVE (NEGATIVE); RBC, URINE AUTO 8 /HPF (0-3); SPECIFIC GRAVITY URINE AUTO 1.008 (1.002-1.035); SQUAMOUS EPITHELIAL CELL UR AU 0 /HPF (0-6); UROBILINOGEN, URINE AUTO 0.2 mg/dL (0.0-2.0); WBC, URINE AUTO 0 /HPF (0-3)
[2025-05-29 03:16] LABS: BASO # 0.1 10^3/uL (0.0-0.2); BASO % 0.9 % (0.0-1.0); EOS # 0.3 10^3/uL (0.0-0.5); EOS % 4.0 % (0.0-3.0); LYMPH # 3.4 10^3/uL (1.5-5.0); LYMPH % 45.5 % (24.0-44.0); MONO # 0.4 10^3/uL (0.0-0.8); MONO % 5.7 % (2.0-8.0); NEUTROPHILS # 3.3 10^3/uL (1.5-8.5); NEUTROPHILS % 43.6 % (36.0-66.0); PLATELET COUNT, AUTOMATED 380 10^3/uL (150-450)
[2025-05-29 03:34] LABS: HCG, SERUM QUANTITATIVE 6.8 MIU/ML (<4.2)
[2025-05-29 03:35] LABS: CALCIUM LEVEL 9.8 MG/DL (8.5-10.1); CARBON DIOXIDE LEVEL 29 MMOL/L (20-31); CHLORIDE LEVEL 106 MMOL/L (98-107); CREATININE FOR GFR 0.63 MG/DL (0.55-1.30); GLOMERULAR FILTRATION RATE > 90.0 (>60); POTASSIUM SERUM 4.0 MMOL/L (3.5-5.1); SODIUM LEVEL 144 MMOL/L (136-145)
== END 2025-05-29 03:43 | disposition left against medical advice (07) ==
LOC: M ED 02:37
DX: Z53.21 Procedure and treatment not carried out due to patient leaving prior to being seen by health care provider (principal)

== ENCOUNTER 2025-05-29 12:39 | Emergency (ER) | payer OTHER ==
[~2025-05-29] VITALS: Ht 160 cm; Wt 74.5 kg
[2025-05-29 14:32] LABS: BASO # 0.1 10^3/uL (0.0-0.2); BASO % 1.1 % (0.0-1.0); EOS # 0.2 10^3/uL (0.0-0.5); EOS % 3.8 % (0.0-3.0); LYMPH # 2.2 10^3/uL (1.5-5.0); LYMPH % 39.3 % (24.0-44.0); MONO # 0.3 10^3/uL (0.0-0.8); MONO % 5.9 % (2.0-8.0); NEUTROPHILS # 2.8 10^3/uL (1.5-8.5); NEUTROPHILS % 49.5 % (36.0-66.0); PLATELET COUNT, AUTOMATED 404 10^3/uL (150-450)
[2025-05-29 14:50] LABS: KETONE, URINE AUTO RFX NEGATIVE (NEGATIVE); LEUKOCYTE ESTERASE UR AUTO RFX NEGATIVE (NEGATIVE); NITRITE, URINE AUTO RFX NEGATIVE (NEGATIVE); RBC, URINE AUTO RFX TNTC /HPF (0-3); SQUAM EPITHELIAL CELL UR AURFX 0 /HPF (0-6); WBC, URINE AUTO RFX 0 /HPF (0-3)
[2025-05-29 14:57] LABS: CALCIUM LEVEL 9.9 MG/DL (8.5-10.1); CARBON DIOXIDE LEVEL 31 MMOL/L (20-31); CHLORIDE LEVEL 103 MMOL/L (98-107); CREATININE FOR GFR 0.63 MG/DL (0.55-1.30); GLOMERULAR FILTRATION RATE > 90.0 (>60); HCG, SERUM QUANTITATIVE 4.4 MIU/ML (<4.2); POTASSIUM SERUM 4.0 MMOL/L (3.5-5.1); SODIUM LEVEL 143 MMOL/L (136-145)
[2025-05-29] MEDS: ACETAMINOPHEN 500 MG TAB PO ONE (16:10)
[2025-05-29 18:52] VITALS: BP 111/69; TEMP 98; O2SAT 97
== END 2025-05-29 18:54 | disposition home or self-care (01) ==
LOC: M ED 12:39
DX: O03.9 Complete or unspecified spontaneous abortion without complication (principal); Z88.8 Allergy status to other drugs, medicaments and biological substances; Z91.018 Allergy to other foods; Z79.1 Long term (current) use of non-steroidal anti-inflammatories (NSAID); Z79.51 Long term (current) use of inhaled steroids; Z79.899 Other long term (current) drug therapy; Z79.810 Long term (current) use of selective estrogen receptor modulators (SERMs)

== ENCOUNTER → 2025-05-31 | Outpatient (CLI) | payer OTHER | LOC: M PLALAB 10:07 | PROVIDERS: ATTEND Student in an Organized Health Care Education/Training Program | DX: Z32.01 Encounter for pregnancy test, result positive (principal) ==